=== PATIENT | female | born 1945 | race Caucasian/White ===

== ENCOUNTER → 2018-01-09 | Outpatient (CLI) | payer MEDICARE ==
[~2018-01-09] MED LIST: ASPI-515 PO; ATOR10TA PO; HYDR-3237 PO; HYDR12.53 PO; HYDR12.58 PO; LISI-170 PO; LORA-445 PO; METO25TA91 PO; METO50TA82 PO
== END | disposition home or self-care (01) ==
LOC: SUSANVILLE 12:00
PROVIDERS: ATTEND Internal Medicine Cardiovascular Disease
DX: I07.1 Rheumatic tricuspid insufficiency (principal); I34.1 Nonrheumatic mitral (valve) prolapse
CPT/HCPCS: 93306

== ENCOUNTER → 2019-12-09 | Outpatient (CLI) | payer MEDICARE ==
[~2019-12-09] MED LIST changes: +HYDR12.517 PO; -HYDR12.53 PO; -HYDR12.58 PO; +HYDROCHLOROTH12.5 MG PO
[2019-12-09 14:14] LABS: ANION GAP 8 mmol/L (5-15); CALCIUM 9.2 mg/dL (8.5-10.1); CHLORIDE 97 mmol/L (98-107); CREATININE 0.48 mg/dL (0.55-1.02)
== END | disposition home or self-care (01) ==
LOC: CFH 10:45
PROVIDERS: ATTEND Internal Medicine Cardiovascular Disease
DX: E87.1 Hypo-osmolality and hyponatremia (principal)
CPT/HCPCS: 36415; 80048

== ENCOUNTER 2019-12-30 12:48 | Observation (INO) | payer MEDICARE ==
[~2019-12-30] VITALS: Ht 172.7 cm; Wt 93.0 kg
--- NOTE | 2019-12-30 13:02 | NUR ---
IGOR. REPORT RECEIVED FROM EMS. PT C/O LOWER BACK PAIN RADIATING TO BILATERAL LEGS WITH TINGLING FEELING, NAUSEA AND ONE EPISODE OF V. DENIES TRAUMA/FALLS/CP/SOB. PT USED 2L OXY AT HOME AT NIGHT. 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 PT'S AOX4. RESPS EVEN AND UNLABORED. BP/SPO2 MONITORS IN PLACE. CALL LIGHT WITHIN REACH.
[2019-12-30] MEDS ORDERED: DIAZEPAM 5 MG/ML, 2ML ONE (13:14)
[2019-12-30] MEDS ORDERED: KETOROLAC 30 MG/1 ML ONE (13:14)
--- NOTE | 2019-12-30 13:22 | NUR ---
PT TO XRAY AT THIS TIME.
--- NOTE | 2019-12-30 13:22 | NUR ---
PT MEDICATED PER EMAR. PT TOLERATED WELL.
[2019-12-30] MEDS ORDERED: DIAZEPAM 5 MG/ML, 2ML IVPush ONE (13:30)
[2019-12-30] MEDS ORDERED: KETOROLAC 30 MG/1 ML IVPush ONE (13:30)
--- NOTE | 2019-12-30 14:50 | NUR ---
PT AMB WITH ONE ASSISTANCE, BUT PT STATED"I'M IN PAIN." PT STATED"I WOULD LIKE TO STAY HERE ONE NIGHT BECAUSE OF SEVERE PAIN" EDMD NOTIFIED.
[2019-12-30] MEDS ORDERED: METO25TA35 PO (14:53)
[2019-12-30] MEDS ORDERED: DOXA2TAB9 PO (14:53)
[2019-12-30] MEDS ORDERED: HYDR50TA3 PO (14:54)
[2019-12-30] MEDS ORDERED: ASPI1TAB85 PO (14:55)
[2019-12-30] MEDS ORDERED: MORPHINE SULFATE 4 MG/ML, 1ML ONE (14:59)
[2019-12-30] MEDS ORDERED: MORPHINE SULFATE 4 MG/ML, 1ML IVPush ONE (15:00)
--- NOTE | 2019-12-30 15:03 | NUR ---
PT MEDICATED PER EMAR. PT TOLERATED WELL.
--- NOTE | 2019-12-30 15:14 | NUR ---
BEDSIDE COMODE IN ROOM FOR UA AT THIS TIME.
--- NOTE | 2019-12-30 15:20 | NUR ---
PT PROVIDED URINE SAMPLE AT THIS TIME. URINE COLLECTED AND UA SENT.
[2019-12-30 15:31] LABS: MICROSCOPIC NOT IND
[2019-12-30 15:35] LABS: ALBUMIN 3.2 g/dL (3.4-5.0); ANION GAP 8 mmol/L (5-15); CHLORIDE 100 mmol/L (98-107); CREATININE 0.53 mg/dL (0.55-1.02)
[2019-12-30 15:51] LABS: MEAN CORPUSCULAR HGB CONC 33.3 g/dL (32.4-35.8); PLATELET COUNT 229 x10^3/uL (130-400); RED CELL DISTRIBUTION WIDTH 14.4 % (9.6-15.2)
[2019-12-30 16:07] LABS: BASOPHILS % (AUTO) 0 % (0-1); EOSINOPHILS # (AUTO) 0.06 x10^3/uL (0-0.4); EOSINOPHILS % (AUTO) 1 % (1-7); LYMPHOCYTES % (AUTO) 27 % (22-44); MONOCYTES # (AUTO) 1.04 x10^3/uL (0.2-0.8); MONOCYTES % (AUTO) 13 % (2-9); NEUTROPHILS # (AUTO) 4.64 x10^3/uL (1.8-6.8); NEUTROPHILS % (AUTO) 59 % (42-75)
[2019-12-30 16:08] LABS: MD SCAN
--- NOTE | 2019-12-30 16:27 | NUR ---
pt resting in [facility]. pt's aox4. resps even and unlabored. bp/spo2 monitors in place. call light within reach.
[2019-12-30] MEDS ORDERED: ONDANSETRON ODT 4 MG PO PRN (16:30)
[2019-12-30] MEDS ORDERED: OXYcodone IR 5MG TABLET PO PRN (16:30)
[2019-12-30] MEDS ORDERED: MEDROL 4MG DOSEPAK PO SCH (16:30)
[2019-12-30] MEDS: PANTOPRAZOLE 40MG TABLET PO SCH (16:30)
[2019-12-30] MEDS ORDERED: ONDANSETRON 2MG/ML, 2ML IVPush PRN (16:30)
[2019-12-30] MEDS ORDERED: POLYETHYLENE GLYCOL 17 GM PACKET PO PRN (16:30)
[2019-12-30] MEDS ORDERED: LORazepam 0.5MG TABLET PO PRN (16:30)
[2019-12-30] MEDS ORDERED: DOCUSATE 100 MG CAPSULE PO PRN (16:30)
[2019-12-30] MEDS ORDERED: morphine SULFATE 10 MG/ML, 1ML IVPush PRN (16:30)
[2019-12-30] MEDS ORDERED: ACETAMINOPHEN 325 MG TABLET ONE (16:38)
[2019-12-30] MEDS ORDERED: PANTOPRAZOLE 20MG TABLET ONE (16:38)
[2019-12-30] MEDS: ACETAMINOPHEN 325 MG TABLET PO SCH ×2 (16:42→22:02)
--- NOTE | 2019-12-30 16:45 | NUR ---
PT MEDICATED PER EMAR. PT TOLERATED WELL. WARM BLANKET GIVEN PER REQUEST AT THIS TIME.
--- NOTE | 2019-12-30 16:46 | NUR ---
DIET TRAY ORDERED AT THIS TIME.
--- NOTE | 2019-12-30 17:50 | NUR ---
REPORT GIVEN TO PHILIP MARTINEZ. ALL QUESTIONS ANSWERED.
[2019-12-30 20:42] VITALS: BP 114/70
[2019-12-30] MEDS ORDERED: ATORVASTATIN 10 MG TABLET PO SCH (21:00)
[2019-12-31 00:12] VITALS: BP 108/66
[2019-12-31] MEDS: ACETAMINOPHEN 325 MG TABLET PO SCH ×4 (01:57→13:27)
[2019-12-31] MEDS: PANTOPRAZOLE 40MG TABLET PO SCH (05:15)
[2019-12-31 07:27] VITALS: BP 117/69
[2019-12-31 08:29] VITALS: BP 122/72
[2019-12-31] MEDS ORDERED: DOXAZOSIN 2MG TABLET PO SCH (09:00)
[2019-12-31] MEDS ORDERED: LISINOPRIL 20 MG TABLET PO SCH (09:00)
[2019-12-31] MEDS ORDERED: ASPIRIN 81 MG TABLET EC PO SCH (09:00)
[2019-12-31] MEDS ORDERED: METOPROLOL TARTRATE 25 MG TAB PO SCH (09:00)
[2019-12-31] MEDS ORDERED: HYDROCHLOROTHIAZIDE 25 MG TABLET PO SCH (09:00)
[2019-12-31] MEDS ORDERED: METO-93 PO (10:49)
[2019-12-31] MEDS ORDERED: DOXA2TAB9 PO (10:49)
[2019-12-31] MEDS ORDERED: OMEP-110 PO (10:49)
[2019-12-31] MEDS ORDERED: PRED20TA PO (10:49)
[2019-12-31 12:05] VITALS: BP 106/66
== END 2019-12-31 15:52 | disposition home or self-care (01) ==
LOC: ED 13:09 → INTOOBSV 14:53 → EDIP 14:53 → 3N 18:36
PROVIDERS: ADMIT Internal Medicine Infectious Disease; ATTEND Family Medicine
DX: M54.5 Low back pain (principal); G89.29 Other chronic pain; M19.90 Unspecified osteoarthritis, unspecified site; I10 Essential (primary) hypertension; J96.11 Chronic respiratory failure with hypoxia; E78.5 Hyperlipidemia, unspecified; F41.1 Generalized anxiety disorder; Z87.310 Personal history of (healed) osteoporosis fracture; Z79.899 Other long term (current) drug therapy; Z87.891 Personal history of nicotine dependence; Z86.79 Personal history of other diseases of the circulatory system; Z79.82 Long term (current) use of aspirin
CPT/HCPCS: 36415; 72110; 80048; 81003; 82040; 85025; 96374; 96375; 97161; 99284; G0378; J1885; J2270; J3360; J7509

== ENCOUNTER 2020-01-29 11:30 | Outpatient (CLI) | payer MEDICARE ==
[~2020-01-29 11:30] MED LIST changes: +ASPI1TAB85 PO; +DOXA2TAB9 PO; +HYDR50TA3 PO; +METO-93 PO; +METO25TA35 PO; +OMEP-110 PO; +PRED20TA PO
[2020-01-29 13:17] LABS: CHLORIDE 100 mmol/L (98-107)
[2020-01-29 13:24] LABS: ANION GAP 6 mmol/L (5-15); CALCIUM 9.4 mg/dL (8.5-10.1); CREATININE 0.53 mg/dL (0.55-1.02)
== END 2020-01-29 23:59 | disposition home or self-care (01) ==
LOC: CFH 11:30
PROVIDERS: ATTEND Internal Medicine Cardiovascular Disease
DX: E87.1 Hypo-osmolality and hyponatremia (principal)
CPT/HCPCS: 36415; 80048

== ENCOUNTER 2020-02-04 13:36 | Outpatient (CLI) | payer MEDICARE | END 2020-02-04 23:59 | disposition home or self-care (01) | LOC: CFH 13:36 | PROVIDERS: ATTEND Nurse Practitioner Family | DX: R76.8 Other specified abnormal immunological findings in serum (principal); M15.0 Primary generalized (osteo)arthritis; M80.08XD Age-related osteoporosis with current pathological fracture, vertebra(e), subsequent encounter for fracture with routine healing; X58.XXXD Exposure to other specified factors, subsequent encounter | CPT/HCPCS: 36415; 73565; 82306; 86160; 86200; 86225; 86235; 86430 ==

== ENCOUNTER 2020-02-04 14:29 | Outpatient (CLI) | payer MEDICARE | END 2020-02-04 23:59 | disposition home or self-care (01) | LOC: RAD 14:29 | PROVIDERS: ATTEND Internal Medicine | DX: M25.762 Osteophyte, left knee (principal); M25.761 Osteophyte, right knee; M05.79 Rheumatoid arthritis with rheumatoid factor of multiple sites without organ or systems involvement; M06.09 Rheumatoid arthritis without rheumatoid factor, multiple sites; M1A.00X0 Idiopathic chronic gout, unspecified site, without tophus (tophi); M15.0 Primary generalized (osteo)arthritis | CPT/HCPCS: 73565 ==

== ENCOUNTER → 2020-03-19 | Outpatient (CLI) | payer MEDICARE | END | disposition home or self-care (01) | LOC: CVU 09:19 | PROVIDERS: ATTEND Internal Medicine Cardiovascular Disease | DX: I10 Essential (primary) hypertension (principal); I47.1 Supraventricular tachycardia; Z95.0 Presence of cardiac pacemaker | CPT/HCPCS: 93306 ==

== ENCOUNTER 2020-03-30 06:41 | Day surgery (SDC) | payer MEDICARE ==
[~2020-03-30] VITALS: Ht 172.7 cm; Wt 90.0 kg
[2020-03-30] MEDS ORDERED: SODIUM CHLORIDE 0.9% 1,000 ML IV ONE (07:00)
[2020-03-30] MEDS ORDERED: METO25TA91 PO (07:17)
[2020-03-30] MEDS ORDERED: CHOL10003 PO (07:17)
[2020-03-30] MEDS ORDERED: CALC-534 PO (07:17)
[2020-03-30] MEDS ORDERED: ALEN70TA3 PO (07:17)
[2020-03-30 07:19] VITALS: BP 135/62
[2020-03-30] MEDS ORDERED: PLEASE ENTER HEIGHT AND WEIGHT MC SCH (07:30)
[2020-03-30] MEDS ORDERED: PROPOFOL 10 MG/ML, 20ML ONE (10:02)
== END 2020-03-30 09:45 | disposition home or self-care (01) ==
LOC: CACL 06:41
PROVIDERS: ATTEND Internal Medicine Cardiovascular Disease
DX: R93.1 Abnormal findings on diagnostic imaging of heart and coronary circulation (principal); T82.897A Other specified complication of cardiac prosthetic devices, implants and grafts, initial encounter; I08.1 Rheumatic disorders of both mitral and tricuspid valves; I47.1 Supraventricular tachycardia; E78.5 Hyperlipidemia, unspecified; I10 Essential (primary) hypertension; M06.9 Rheumatoid arthritis, unspecified; Z79.899 Other long term (current) drug therapy; Z87.891 Personal history of nicotine dependence; Z95.0 Presence of cardiac pacemaker; Y83.8 Other surgical procedures as the cause of abnormal reaction of the patient, or of later complication, without mention of misadventure at the time of the procedure
CPT/HCPCS: 93312; 93325; J2704